=== PATIENT | female | born 1970 | race Caucasian/White ===

== ENCOUNTER 2022-05-31 15:43 | Emergency (ER) | payer BC, SELFPAY ==
[2022-05-31 16:17] VITALS: BP 127/71; PULSE 63; RESP 18; TEMP 36.3; O2SAT 100
--- NOTE | 2022-05-31 16:30 | ED.EAR ---
HPI - Ear Problem General Chief complaint: Ear Stated complaint: Rt ear pain Time Seen by Provider: 05/31/22 16:30 Source: patient Mode of arrival: ambulatory Limitations: no limitations History of Present Illness HPI Narrative: 52-year-old female presented for complaint of right ear pain intermittently over the last 8 days. She endorses pain radiates into the right side of her throat. Pain is sharp and improves with Tylenol or ibuprofen. She denies associated tinnitus, dizziness, nausea, vomiting, fever chills. She has taken 2 z-packs since for URIs. She states she was unable to get in to see her PCP until after Jalen. Complaint: ear pain Related Data Home Medications Medication Instructions Recorded Confirmed bupropion HCl 150 mg tablet,12 hr 150 mg PO BID 05/31/22 05/31/22 sustained-release Allergies Allergy/AdvReac Type Severity Reaction Status Date / Time No Known Allergies Allergy Verified 05/31/22 16:13 Review of Systems Review of Systems: CONSTITUTIONAL: Denies malaise, chills, or fever. EYES: Denies visual changes, redness, or discharge. ENT: Denies rhinorrhea, congestion, sinus pain, and sore throat. Reports ear pain CARDIOVASCULAR: Denies chest pain, palpitations, or edema. RESPIRATORY: Denies cough or dyspnea. GASTROINTESTINAL: Denies abdominal pain, nausea, vomiting, diarrhea SKIN: Denies rash or itching. MUSCULOSKELETAL: Denies myalgia. NEUROLOGIC: Denies headache. All systems reviewed & are unremarkable except as noted in HPI and below PMFSH Comments At time of signature, agree with nursing past medical, surgical, social and family history. There is no relevant family history pertinent to the presenting complaint Exam Narrative: GENERAL: Well-appearing EYES: PERRLA, conjunctivae clear ENT: Nares clear. Mucous membranes moist. TMs pearly ricks with dull light reflex bilaterally; no tragal tenderness. Oropharynx not erythematous without lesions. NECK: Supple. No lymphadenopathy CHEST: Clear to auscultation, breath sounds equal. HEART: Regular rate and rhythm. No murmur heard. SKIN: Warm, dry, no rash. NEURO: Alert and oriented x3. PSYCH: Normal mood and affect Course Course Emergency Course: Patient is aware of diagnosis, understands and agrees to treatment plan. Anticipatory guidance given. Patient agrees to follow-up as directed and is aware of reasons to seek care at the emergency department. Portions of this record may have been created with voice recognition software Level of Care: Express Care Visit Vital Signs Vital signs: Vital Signs Temperature 97.3 F L 05/31/22 16:17 Pulse Rate 63 05/31/22 16:17 Respiratory Rate 18 05/31/22 16:17 Blood Pressure 127/71 05/31/22 16:17 Pulse Oximetry 100 05/31/22 16:17 Oxygen Delivery Room Air 05/31/22 16:17 Temperature 97.3 F L 05/31/22 16:17 Pulse Rate 63 05/31/22 16:17 Respiratory Rate 18 05/31/22 16:17 Blood Pressure 127/71 05/31/22 16:17 Pulse Oximetry 100 05/31/22 16:17 Oxygen Delivery Room Air 05/31/22 16:17 Reviewed Medical Decision Making MDM Narrative Medical decision making narrative: Discussed possible etiologies of pain including eustachian tube dysfunction, Advised supportive measures and signs/symptoms to go to the ER. Rx if symptoms worsen/fever develops before she can be seen by pcp. Patient is appropriate for outpatient treatment and follow-up with pcp. 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 Differential Diagnosis Differential Diagnosis: upper respiratory tract infection, sinusitis, rhinosinusitis, nasopharyngitis, viral pharyngitis, otitis media, otitis externa, eustachian tube dysfunction, foreign body, cerumen impaction. Vital Signs Vital Signs: Vital Signs Temperature 97.3 F L 05/31/22 16:17 Pulse Rate 63 05/31/22 16:17 Respiratory Rate 18 05/31/22 16:17 Blood Pressure 127/71 05/31/22 16:17 Pulse
== END 2022-05-31 16:48 | disposition home or self-care (01) ==
PROVIDERS: Emergency Provider Nurse Practitioner Family; PCP Internal Medicine
DX: H65.01 Acute serous otitis media, right ear (principal)
CPT/HCPCS: 99203; G0463